=== PATIENT | male | born 1955 | race Caucasian/White ===

== ENCOUNTER 2022-07-08 11:52 | Inpatient (IN) | payer MEDICARE, SELFPAY ==
--- NOTE | ~2022-07-08 | XR_ITS ---
EXAMINATION: XR chest 1V portable DATE: 07/26/2022 10:22 INDICATION: Central line placement. TECHNIQUE: A single frontal view of the chest was obtained. COMPARISON: None. FINDINGS: The chest demonstrates clear lungs without pneumonia, pleural effusion, or pneumothorax. Th e heart size is normal. A right upper extremity peripherally inserted central venous catheter (PICC) is seen with tip in the superior vena cava. IMPRESSION: 1. PICC tip in the superior vena cava. Reviewed, dictated and finalized at location A.
[2022-07-08 13:00] VITALS: BMI 29.5
--- NOTE | 2022-07-08 13:20 | ADMGEN ---
This patient, Declan Maguire, was admitted to 2nd Floor Room 208-1. Patient/family oriented to hospital policies and general routines including ID bracelet, bed and alarms, visiting hours, pain management, procedures, bathroom and other care routines, personal items, smoking policy, room service/diet, and visiting hours. Information on how to activate the Rapid Response Team has been discussed. Patient/Family are encouraged to report perceived risks to care and to ask questions if they do not understand what they are told or what they should do.
[2022-07-08 13:35] VITALS: BP 143/77; PULSE 66; RESP 17; TEMP 37; O2SAT 98
[2022-07-08] MEDS: rOPINIRole HCL 0.25 MG TABLET 0.75 MG PO (16:35)
[2022-07-08] MEDS: APIXABAN 2.5 MG TABLET 5 MG BY MOUTH (20:40)
[2022-07-08] MEDS: BACITRACIN OINTMENT 15 GM TUBE 1 APPLIC TOPICAL (20:40)
[2022-07-09] VITALS: BP 114/51; PULSE 68; RESP 18; TEMP 36.8; O2SAT 96
[2022-07-09 07:52] VITALS: BP 122/73; PULSE 71; RESP 16; TEMP 37.3; O2SAT 97
[2022-07-09] MEDS: FOLIC ACID 1 MG TABLET PO (08:49)
[2022-07-09] MEDS: APIXABAN 2.5 MG TABLET 5 MG BY MOUTH ×2 (08:49→20:23)
[2022-07-09] MEDS: polyethylene glycoL 3350 17 GM POWD.PACK PO (08:49)
[2022-07-09] MEDS: FUROSEMIDE 40 MG TABLET PO (08:49)
[2022-07-09] MEDS: lisinopriL 20 MG TABLET 40 MG PO (08:50)
[2022-07-09] MEDS: ASPIRIN 325 MG ENTERIC TABLET PO (08:50)
[2022-07-09] MEDS: TAMSULOSIN HCL 0.4 MG CAPSULE PO (08:51)
[2022-07-09] MEDS: PANTOPRAZOLE 40 MG TABLET PO (08:51)
[2022-07-09] MEDS: rOPINIRole HCL 0.25 MG TABLET 0.75 MG PO ×3 (08:51→17:47)
[2022-07-09] MEDS: ATORVASTATIN 40 MG TABLET PO (08:51)
[2022-07-09] MEDS: BACITRACIN OINTMENT 15 GM TUBE 1 APPLIC TOPICAL ×2 (08:54→20:40)
--- NOTE | 2022-07-09 11:47 | PM.IMHP ---
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 on 07/02 for total penectomy site dehiscence. Wound cx of the penectomy surgical site now growing PsA and E faecalis. Originally on Vancomycin/Zosyn per Urology. Infectious diesease changed medication to Zosyn IV picc line was placed on 07/07. Patient will continue to recieve IV antibiotic and we will have Physical therapy evaluate patient . Review of Systems Review of Systems: feliciano, Penectomy, All systems reviewed & are unremarkable except as noted in HPI and below PMFSH Past Medical History Medical History (Updated 07/09/22 @ 11:50 by Shira Kaur NP) PETE (acute kidney injury) Dehiscence of wound HTN (hypertension) with goal to be determined Parkinson disease Surgical History Surgical History (Updated 07/09/22 @ 11:50 by Shira Kaur NP) History of penectomy Family History Family History Other Unknown family medical history Social History Social History Smoking packs per day: 1 Smoking cigarettes per day: 20.0 Smoking status: Former smoker Tobacco type: cigarettes Smoking end date: 05/25/22 Alcohol intake: former Substance use: never Substance use type: does not use Lack of Transportation: No Lack of Food: Never True Current Housing: I Have Housing Concerned About Future Housing: No Difficulty Paying Gas/Electric Bills: No Difficulty Paying for Meds: No Currently Unemployed: No Education: Trade/Vocational Certificate Difficulty w/ Childcare or Family Care: No Spiritual care concerns: No Meds Home Medications and Allergies Home Medications Medication Instructions Recorded Confirmed Type acetaminophen 325 mg tablet 650 mg PO Q6-8H PRN Pain 07/08/22 07/08/22 History apixaban 5 mg tablet (Eliquis) 5 mg PO BID 07/08/22 07/08/22 History aspirin 325 mg tablet 325 mg PO DAILY 07/08/22 07/08/22 History atorvastatin 40 mg tablet 40 mg PO DAILY 07/08/22 07/08/22 History bacitracin 500 unit/gram topical See Rx Instructions .Route .COMPLEX 07/08/22 07/08/22 History ointment folic acid 1 mg tablet 1 mg PO DAILY 07/08/22 07/08/22 History furosemide 40 mg tablet 40 mg PO DAILY 07/08/22 07/08/22 History lisinopril 40 mg tablet 40 mg PO DAILY 07/08/22 07/08/22 History melatonin 3 mg tablet 3 mg PO HS PRN Sleep 07/08/22 07/08/22 History omeprazole 20 mg capsule,delayed 20 mg PO DAILY 07/08/22 07/08/22 History release piperacillin-tazobactam 4.5 gram 4.5 g IV Q6H 07/08/22 07/08/22 History intravenous solution polyethylene glycol 3350 17 gram 17 g PO DAILY 07/08/22 07/08/22 History oral powder packet ropinirole 0.25 mg tablet 0.75 mg PO TID 07/08/22 07/08/22 History tamsulosin 0.4 mg capsule 0.4 mg PO DAILY 07/08/22 07/08/22 History Allergies Allergy/AdvReac Type Severity Reaction Status Date / Time No Known Drug Allergies Allergy Unknown Verified 07/08/22 21:58 Vital Signs Vital Signs - 24 hr 07/08/22 13:35 07/09/22 00:00 07/09/22 07:52 Temperature 98.6 F 98.3 F 99.1 F Pulse Rate 66 68 71 Respiratory Rate 17 18 16 Blood Pressure 143/77 H 114/51 L 122/73 Pulse Oximetry 98 96 97 Oxygen Delivery Room Air Room Air Room Air Exam Narrative: GENERAL:Well-appearing, well-nourished, and in no acute distress. HEAD:Normocephalic, atraumatic. EYES: PERRLA and EOMI. ENT: Nares clear, no rhinorrhea or epistaxis. Mucous membranes moist. CHEST: Clear to auscultation lower lobe diminished. No respiratory distress. HEART: Regular rate and rhythm. Normal peripheral pulses
[2022-07-09 16:00] VITALS: BP 95/57; PULSE 71; RESP 16; TEMP 36.9; O2SAT 98
[2022-07-09 20:00] VITALS: PULSE 71; RESP 16; O2SAT 98
[2022-07-10] VITALS: BP 93/54; PULSE 74; RESP 16; TEMP 36.7; O2SAT 97
[2022-07-10 07:55] VITALS: BP 110/57; PULSE 61; RESP 14; TEMP 37; O2SAT 98
[2022-07-10] MEDS: lisinopriL 20 MG TABLET 40 MG PO (08:46)
[2022-07-10] MEDS: APIXABAN 2.5 MG TABLET 5 MG BY MOUTH ×2 (08:46→20:30)
[2022-07-10] MEDS: FUROSEMIDE 40 MG TABLET PO (08:47)
[2022-07-10] MEDS: TAMSULOSIN HCL 0.4 MG CAPSULE PO (08:47)
[2022-07-10] MEDS: FOLIC ACID 1 MG TABLET PO (08:47)
[2022-07-10] MEDS: PANTOPRAZOLE 40 MG TABLET PO (08:48)
[2022-07-10] MEDS: ATORVASTATIN 40 MG TABLET PO (08:48)
[2022-07-10] MEDS: rOPINIRole HCL 0.25 MG TABLET 0.75 MG PO ×3 (08:48→17:52)
[2022-07-10] MEDS: polyethylene glycoL 3350 17 GM POWD.PACK PO (08:49)
[2022-07-10] MEDS: BACITRACIN OINTMENT 15 GM TUBE 1 APPLIC TOPICAL ×2 (08:52→20:30)
[2022-07-10] MEDS: ASPIRIN 325 MG ENTERIC TABLET PO (08:52)
[2022-07-10 15:51] VITALS: BP 102/54; PULSE 71; RESP 14; TEMP 37; O2SAT 98
[2022-07-10 20:00] VITALS: PULSE 71; RESP 14; O2SAT 98
[2022-07-10] MEDS: ACETAMINOPHEN 325 MG TABLET 650 MG PO (20:47)
[2022-07-10] MEDS: MELATONIN 3 MG TABLET PO (20:48)
[2022-07-11] VITALS: BP 107/52; PULSE 68; RESP 16; TEMP 36.4; O2SAT 97
[2022-07-11] MEDS: HEPARIN SODIUM LOCK FLUSH 500 UNITS/5 ML SYRINGE IV PUSH ×2 (01:00→08:36)
[2022-07-11 08:00] VITALS: BP 123/70; PULSE 71; RESP 14; TEMP 36.6; O2SAT 99
[2022-07-11] MEDS: ACETAMINOPHEN 325 MG TABLET 650 MG PO ×2 (08:33→20:39)
[2022-07-11] MEDS: APIXABAN 2.5 MG TABLET 5 MG BY MOUTH ×2 (08:34→20:39)
[2022-07-11] MEDS: rOPINIRole HCL 0.25 MG TABLET 0.75 MG PO ×3 (08:34→17:07)
[2022-07-11] MEDS: ASPIRIN 325 MG ENTERIC TABLET PO (08:34)
[2022-07-11] MEDS: FOLIC ACID 1 MG TABLET PO (08:35)
[2022-07-11] MEDS: PANTOPRAZOLE 40 MG TABLET PO (08:35)
[2022-07-11] MEDS: lisinopriL 20 MG TABLET 40 MG PO (08:35)
[2022-07-11] MEDS: FUROSEMIDE 40 MG TABLET PO (08:35)
[2022-07-11] MEDS: ATORVASTATIN 40 MG TABLET PO (08:36)
[2022-07-11] MEDS: TAMSULOSIN HCL 0.4 MG CAPSULE PO (08:36)
[2022-07-11] MEDS: BACITRACIN OINTMENT 15 GM TUBE 1 APPLIC TOPICAL ×2 (08:36→22:08)
[2022-07-11] MEDS: SACCHAROMYCES BOULARDII 250 MG CAPSULE PO ×2 (09:40→17:07)
[2022-07-11 16:00] VITALS: BP 113/65; PULSE 71; RESP 16; TEMP 37; O2SAT 98
[2022-07-12] VITALS: BP 108/53; PULSE 56; RESP 16; TEMP 36.7; O2SAT 97
[2022-07-12 08:00] VITALS: BP 105/63; PULSE 70; RESP 14; TEMP 36.8; O2SAT 99
[2022-07-12] MEDS: ASPIRIN 325 MG ENTERIC TABLET PO (09:10)
[2022-07-12] MEDS: lisinopriL 20 MG TABLET 40 MG PO (09:45)
[2022-07-12] MEDS: polyethylene glycoL 3350 17 GM POWD.PACK PO (09:46)
[2022-07-12] MEDS: rOPINIRole HCL 0.25 MG TABLET 0.5 MG (09:47)
[2022-07-12] MEDS: ATORVASTATIN 40 MG TABLET PO (09:47)
[2022-07-12] MEDS: SACCHAROMYCES BOULARDII 250 MG CAPSULE PO ×2 (09:49→18:10)
[2022-07-12] MEDS: TAMSULOSIN HCL 0.4 MG CAPSULE PO (09:50)
[2022-07-12] MEDS: PANTOPRAZOLE 40 MG TABLET PO (09:50)
[2022-07-12] MEDS: APIXABAN 2.5 MG TABLET 5 MG BY MOUTH ×2 (09:50→20:59)
[2022-07-12] MEDS: HEPARIN SODIUM LOCK FLUSH 500 UNITS/5 ML SYRINGE IV PUSH (09:51)
[2022-07-12] MEDS: FOLIC ACID 1 MG TABLET PO (09:51)
[2022-07-12] MEDS: FUROSEMIDE 40 MG TABLET PO (09:51)
[2022-07-12] MEDS: BACITRACIN OINTMENT 15 GM TUBE 1 APPLIC TOPICAL ×2 (10:30→20:59)
[2022-07-12 16:30] VITALS: BP 102/54; PULSE 79; RESP 18; TEMP 36.8; O2SAT 98
[2022-07-12] MEDS: rOPINIRole HCL 0.25 MG TABLET 0.75 MG PO (18:10)
[2022-07-13] VITALS: BP 105/50; PULSE 76; RESP 16; TEMP 36.7; O2SAT 97
[2022-07-13 08:00] VITALS: BP 117/60; PULSE 63; TEMP 36.7; O2SAT 99
[2022-07-13] MEDS: APIXABAN 2.5 MG TABLET 5 MG BY MOUTH ×2 (08:40→20:40)
[2022-07-13] MEDS: lisinopriL 20 MG TABLET 40 MG PO (08:43)
[2022-07-13] MEDS: ASPIRIN 325 MG ENTERIC TABLET PO (08:43)
[2022-07-13] MEDS: FOLIC ACID 1 MG TABLET PO (08:43)
[2022-07-13] MEDS: rOPINIRole HCL 0.25 MG TABLET 0.75 MG PO ×3 (08:44→16:45)
[2022-07-13] MEDS: ATORVASTATIN 40 MG TABLET PO (08:45)
[2022-07-13] MEDS: FUROSEMIDE 40 MG TABLET PO (08:45)
[2022-07-13] MEDS: SACCHAROMYCES BOULARDII 250 MG CAPSULE PO ×2 (08:45→16:44)
[2022-07-13] MEDS: TAMSULOSIN HCL 0.4 MG CAPSULE PO (08:45)
[2022-07-13] MEDS: PANTOPRAZOLE 40 MG TABLET PO (08:45)
[2022-07-13] MEDS: HEPARIN SODIUM LOCK FLUSH 500 UNITS/5 ML SYRINGE IV PUSH ×2 (08:47→18:36)
[2022-07-13] MEDS: LOPERAMIDE HCL 2 MG CAPSULE PO (09:40)
[2022-07-13] MEDS: BACITRACIN OINTMENT 15 GM TUBE 1 APPLIC TOPICAL ×2 (09:41→20:40)
--- NOTE | 2022-07-13 15:26 | PC.NURSE ---
Notified Charge nurse Reba that the pt is passing red urine. Pt denies any pain .
[2022-07-13 16:00] VITALS: BP 113/59; PULSE 73; RESP 18; TEMP 36.8; O2SAT 98
[2022-07-13] MEDS: MELATONIN 3 MG TABLET PO (20:40)
[2022-07-14] VITALS: BP 99/53; PULSE 60; RESP 20; TEMP 37.1; O2SAT 97
[2022-07-14 05:18] LABS: Hematocrit 31.9 % (37.0-46.0); Hemoglobin 9.8 g/dL (12.4-15.3); Mean Corpuscular HGB Conc 30.7 g/dL (32.0-36.0); Mean Corpuscular Hemoglobin 29.5 pg (27.0-31.0); Mean Corpuscular Volume 96.1 fL (78.0-102.0); Mean Platelet Volume 10.2 fl (8.7-11.0); Platelet Count Result 307 K/mm3 (150-420); Red Blood Count 3.32 M/mm3 (4.70-6.10); Red Cell Distribution Width 16.7 % (11.6-14.4); White Blood Count 8.5 K/mm3 (4.8-10.8)
[2022-07-14 05:36] LABS: Alanine Aminotransferase 12 U/L (16-63); Albumin Level 2.8 g/dL (3.4-5.0); Alkaline Phosphatase 58 U/L (46-116); Anion Gap 8 mmol/L (8-16); Aspartate Amino Transferase 11 U/L (15-37); Bilirubin,Total 0.1 mg/dL (0.00-1.00); Blood Urea Nitrogen 40 mg/dL (7-18); Calcium 10.1 mg/dL (8.5-10.1); Carbon Dioxide 27 mmol/L (21-32); Chloride 107 mmol/L (98-108); Estimated CRCL calculation 34 ml/min; Estimated Glomerular Filt Rate 33; Glucose 102 mg/dL (70-99); Magnesium 1.8 mg/dL (1.8-2.4); Osmolality Calculated 303 mOsm/kg (285-295); Potassium 4.3 mmol/L (3.5-5.1); Sodium 142 mmol/L (136-145)
[2022-07-14] MEDS: HEPARIN SODIUM LOCK FLUSH 500 UNITS/5 ML SYRINGE IV PUSH ×4 (06:01→23:46)
--- NOTE | 2022-07-14 06:02 | PC.NURSE ---
Red Port of dual lumen flushed and cap and lid changed after blood draw from PICC.
[2022-07-14 07:34] VITALS: BP 123/58; PULSE 59; RESP 16; TEMP 36.8; O2SAT 97
[2022-07-14] MEDS: TAMSULOSIN HCL 0.4 MG CAPSULE PO (08:22)
[2022-07-14] MEDS: SACCHAROMYCES BOULARDII 250 MG CAPSULE PO ×2 (08:23→17:24)
[2022-07-14] MEDS: FUROSEMIDE 40 MG TABLET PO (08:23)
[2022-07-14] MEDS: APIXABAN 2.5 MG TABLET 5 MG BY MOUTH ×2 (08:23→21:01)
[2022-07-14] MEDS: ATORVASTATIN 40 MG TABLET PO (08:23)
[2022-07-14] MEDS: rOPINIRole HCL 0.25 MG TABLET 0.75 MG PO ×2 (08:24→12:07)
[2022-07-14] MEDS: FOLIC ACID 1 MG TABLET PO (08:24)
[2022-07-14] MEDS: ASPIRIN 325 MG ENTERIC TABLET PO (08:25)
[2022-07-14] MEDS: PANTOPRAZOLE 40 MG TABLET PO (08:26)
[2022-07-14] MEDS: lisinopriL 20 MG TABLET 40 MG PO (08:29)
[2022-07-14] MEDS: BACITRACIN OINTMENT 15 GM TUBE 1 APPLIC TOPICAL ×2 (08:30→21:13)
--- NOTE | 2022-07-14 09:16 | PC.NURSE ---
Wet to dry dressing replaced at surgical site. Ointment applied to perineal catheter site.
[2022-07-14] MEDS: ACETAMINOPHEN 325 MG TABLET 650 MG PO ×2 (12:50→21:02)
--- NOTE | 2022-07-14 13:02 | PC.NURSE ---
Patient out of building with ex- for oncology appointment in [place].
[2022-07-14 16:00] VITALS: BP 119/68; PULSE 69; RESP 16; TEMP 36.5; O2SAT 98
--- NOTE | 2022-07-14 16:10 | PC.NURSE ---
Patient returned to unit.
--- NOTE | 2022-07-14 16:19 | PC.NURSE ---
Patient returned to facility from specialist appointment. New orders received. Lana Miller Hospitalist/ADMINISTRATIVE SERVICES ASSISTANT, notified of medication change.
[2022-07-14] MEDS: rOPINIRole HCL 1 MG TABLET PO (17:24)
[2022-07-14 20:00] VITALS: PULSE 69; RESP 16; O2SAT 98
[2022-07-14] MEDS: MELATONIN 3 MG TABLET PO (21:01)
[2022-07-15] VITALS: BP 90/45; PULSE 69; RESP 17; TEMP 36.7; O2SAT 98
[2022-07-15] MEDS: HEPARIN SODIUM LOCK FLUSH 500 UNITS/5 ML SYRINGE IV PUSH ×3 (05:36→08:46)
[2022-07-15 08:00] VITALS: BP 130/61; PULSE 54; RESP 16; TEMP 36.4; O2SAT 97
[2022-07-15] MEDS: ASPIRIN 325 MG ENTERIC TABLET PO (08:47)
[2022-07-15] MEDS: FUROSEMIDE 40 MG TABLET PO (08:47)
[2022-07-15] MEDS: lisinopriL 20 MG TABLET 40 MG PO (08:47)
[2022-07-15] MEDS: TAMSULOSIN HCL 0.4 MG CAPSULE PO (08:48)
[2022-07-15] MEDS: rOPINIRole HCL 1 MG TABLET PO ×3 (08:48→17:46)
[2022-07-15] MEDS: SACCHAROMYCES BOULARDII 250 MG CAPSULE PO ×2 (08:48→17:46)
[2022-07-15] MEDS: APIXABAN 2.5 MG TABLET 5 MG BY MOUTH ×2 (08:48→21:17)
[2022-07-15] MEDS: PANTOPRAZOLE 40 MG TABLET PO (08:49)
[2022-07-15] MEDS: BACITRACIN OINTMENT 15 GM TUBE 1 APPLIC TOPICAL ×2 (08:49→21:20)
[2022-07-15] MEDS: FOLIC ACID 1 MG TABLET PO (08:49)
[2022-07-15] MEDS: ATORVASTATIN 40 MG TABLET PO (08:49)
--- NOTE | 2022-07-15 10:53 | PC.NURSE ---
Inspector [employer] completed dressing change to perineal area and cleansed catheter site and applied ointment. Patient tolerated well. Surgical wounds healing with no s/s infection noted at this time.
[2022-07-15 16:00] VITALS: BP 92/47; PULSE 70; RESP 16; TEMP 37; O2SAT 96
[2022-07-15] MEDS: ACETAMINOPHEN 325 MG TABLET 650 MG PO (21:18)
[2022-07-15 23:05] VITALS: BP 81/55; PULSE 72; RESP 15; TEMP 36.6; O2SAT 98
[2022-07-16 08:00] VITALS: BP 108/61; PULSE 69; RESP 17; TEMP 36.6; O2SAT 99
--- NOTE | 2022-07-16 09:36 | PM.EVENT ---
Event Note Event Note Event Note: lisinipril dc'ed due to hypotension
[2022-07-16] MEDS: APIXABAN 2.5 MG TABLET 5 MG BY MOUTH ×2 (09:55→20:52)
[2022-07-16] MEDS: rOPINIRole HCL 1 MG TABLET PO ×3 (09:55→17:24)
[2022-07-16] MEDS: PANTOPRAZOLE 40 MG TABLET PO (09:55)
[2022-07-16] MEDS: BACITRACIN OINTMENT 15 GM TUBE 1 APPLIC TOPICAL ×2 (09:56→20:53)
[2022-07-16] MEDS: ASPIRIN 325 MG ENTERIC TABLET PO (09:56)
[2022-07-16] MEDS: FOLIC ACID 1 MG TABLET PO (09:56)
[2022-07-16] MEDS: FUROSEMIDE 40 MG TABLET PO (09:56)
[2022-07-16] MEDS: TAMSULOSIN HCL 0.4 MG CAPSULE PO (09:56)
[2022-07-16] MEDS: SACCHAROMYCES BOULARDII 250 MG CAPSULE PO ×2 (09:58→17:24)
[2022-07-16 16:00] VITALS: BP 111/59; PULSE 72; RESP 17; TEMP 36.3; O2SAT 100
[2022-07-16 23:03] VITALS: BP 90/50; PULSE 70; RESP 16; TEMP 36.8; O2SAT 98
[2022-07-17 08:00] VITALS: BP 108/54; PULSE 84; RESP 17; TEMP 36.3; O2SAT 98
[2022-07-17] MEDS: ATORVASTATIN 40 MG TABLET PO (10:06)
[2022-07-17] MEDS: TAMSULOSIN HCL 0.4 MG CAPSULE PO (10:06)
[2022-07-17] MEDS: FUROSEMIDE 40 MG TABLET PO (10:06)
[2022-07-17] MEDS: PANTOPRAZOLE 40 MG TABLET PO (10:06)
[2022-07-17] MEDS: ASPIRIN 325 MG ENTERIC TABLET PO (10:06)
[2022-07-17] MEDS: FOLIC ACID 1 MG TABLET PO (10:06)
[2022-07-17] MEDS: SACCHAROMYCES BOULARDII 250 MG CAPSULE PO ×2 (10:06→17:22)
[2022-07-17] MEDS: rOPINIRole HCL 1 MG TABLET PO ×3 (10:06→17:22)
[2022-07-17] MEDS: BACITRACIN OINTMENT 15 GM TUBE 1 APPLIC TOPICAL ×2 (10:07→20:52)
[2022-07-17 16:00] VITALS: BP 97/58; PULSE 78; RESP 17; TEMP 36.4; O2SAT 98
[2022-07-17 23:15] VITALS: BP 114/62; PULSE 70; RESP 15; TEMP 36.8; O2SAT 98
[2022-07-18] VITALS: BP 96/60; PULSE 60; RESP 20; TEMP 36.8; O2SAT 97
--- NOTE | 2022-07-18 06:56 | PC.NURSE ---
Pt's ex /friend Doug picked up pt for his urologist appointment. This RN transferred pt in wheelchair to the car at the front door. Pt left w/money, phone, sunglasses and hat on person. Prior to ex picking him up pt's clothes were changed and skin was cleaned w/hygiene wipes.
[2022-07-18 08:00] VITALS: BP 110/64; PULSE 75; RESP 16; TEMP 36.4; O2SAT 98
--- NOTE | 2022-07-18 10:31 | PC.NURSE ---
Patient returned from urology appointment with new order that patient may shower. Patient's urostomy catheter has been removed, and it is recommended that patient wear depends due to probability of dribbling until patient is used to new way of urinating.
[2022-07-18] MEDS: SACCHAROMYCES BOULARDII 250 MG CAPSULE PO ×2 (10:39→17:17)
[2022-07-18] MEDS: ASPIRIN 325 MG ENTERIC TABLET PO (10:39)
[2022-07-18] MEDS: TAMSULOSIN HCL 0.4 MG CAPSULE PO (10:40)
[2022-07-18] MEDS: APIXABAN 2.5 MG TABLET 5 MG BY MOUTH ×2 (10:40→21:30)
[2022-07-18] MEDS: FOLIC ACID 1 MG TABLET PO (10:40)
[2022-07-18] MEDS: rOPINIRole HCL 1 MG TABLET PO ×3 (10:40→17:17)
[2022-07-18] MEDS: ATORVASTATIN 40 MG TABLET PO (10:40)
[2022-07-18] MEDS: PANTOPRAZOLE 40 MG TABLET PO (10:41)
[2022-07-18] MEDS: BACITRACIN OINTMENT 15 GM TUBE 1 APPLIC TOPICAL (10:41)
[2022-07-18] MEDS: FUROSEMIDE 40 MG TABLET PO (10:41)
--- NOTE | 2022-07-18 10:44 | PC.NURSE ---
Patient's dressing changed at urology appointment this am.
--- NOTE | 2022-07-18 11:23 | PC.NURSE ---
X Ray Control Equipment Repairer left patient in chair with call light while he was eating post appointment. When financial writer was walking by room minutes later, financial writer observed patient in bed. X Ray Control Equipment Repairer asked patient how he transferred to bed and patient admitted that he walked himself to bed. X Ray Control Equipment Repairer reminded patient that he is a moderate fall risk, and has not been released by PT to ambulate independently. Patient agreed and stated that he won't do it again. Frequent reminders needed.
--- NOTE | 2022-07-18 12:54 | PC.NURSE ---
Patient able to void on his own post urostomy removal. Urine clear, and light yellow.
[2022-07-18 16:00] VITALS: BP 113/66; PULSE 73; RESP 16; TEMP 36.9; O2SAT 97
--- NOTE | 2022-07-18 18:56 | PC.NURSE ---
Patient voiding well without catheter. Urine clear light yellow. No bladder distention noted at this time.
[2022-07-18 20:00] VITALS: PULSE 73; RESP 16; O2SAT 97
[2022-07-18] MEDS: ACETAMINOPHEN 325 MG TABLET 650 MG PO (21:30)
[2022-07-18] MEDS: MELATONIN 3 MG TABLET PO (21:30)
[2022-07-18] MEDS: HEPARIN SODIUM LOCK FLUSH 500 UNITS/5 ML SYRINGE IV PUSH (21:36)
[2022-07-19] VITALS: BP 124/67; PULSE 68; RESP 16; TEMP 36.7; O2SAT 98
[2022-07-19] MEDS: HEPARIN SODIUM LOCK FLUSH 500 UNITS/5 ML SYRINGE IV PUSH ×2 (05:12→21:18)
[2022-07-19 08:00] VITALS: BP 132/70; PULSE 68; RESP 16; TEMP 36.7; O2SAT 99
[2022-07-19] MEDS: ASPIRIN 325 MG ENTERIC TABLET PO (09:24)
[2022-07-19] MEDS: APIXABAN 2.5 MG TABLET 5 MG BY MOUTH ×2 (09:24→20:55)
[2022-07-19] MEDS: SACCHAROMYCES BOULARDII 250 MG CAPSULE PO ×2 (09:24→16:41)
[2022-07-19] MEDS: FUROSEMIDE 40 MG TABLET PO (09:25)
[2022-07-19] MEDS: ATORVASTATIN 40 MG TABLET PO (09:25)
[2022-07-19] MEDS: PANTOPRAZOLE 40 MG TABLET PO (09:25)
[2022-07-19] MEDS: FOLIC ACID 1 MG TABLET PO (09:25)
[2022-07-19] MEDS: rOPINIRole HCL 1 MG TABLET PO ×3 (09:25→16:41)
[2022-07-19] MEDS: TAMSULOSIN HCL 0.4 MG CAPSULE PO (09:25)
[2022-07-19] MEDS: BACITRACIN OINTMENT 15 GM TUBE 1 APPLIC TOPICAL ×2 (09:32→20:57)
[2022-07-19 16:00] VITALS: BP 126/66; PULSE 76; RESP 16; TEMP 36.9; O2SAT 97
[2022-07-19 20:00] VITALS: PULSE 76; RESP 16; O2SAT 97
[2022-07-20] VITALS: BP 122/65; PULSE 67; RESP 18; TEMP 36.4; O2SAT 98
--- NOTE | 2022-07-20 05:38 | PC.NURSE ---
IV antibiotic infusing as ordered.
[2022-07-20 08:00] VITALS: BP 115/69; PULSE 60; RESP 14; TEMP 36.7; O2SAT 99
[2022-07-20] MEDS: rOPINIRole HCL 1 MG TABLET PO ×3 (09:27→16:58)
[2022-07-20] MEDS: FUROSEMIDE 40 MG TABLET PO (09:27)
[2022-07-20] MEDS: SACCHAROMYCES BOULARDII 250 MG CAPSULE PO ×2 (09:28→16:58)
[2022-07-20] MEDS: TAMSULOSIN HCL 0.4 MG CAPSULE PO (09:28)
[2022-07-20] MEDS: ATORVASTATIN 40 MG TABLET PO (09:28)
[2022-07-20] MEDS: PANTOPRAZOLE 40 MG TABLET PO (09:28)
[2022-07-20] MEDS: ASPIRIN 325 MG ENTERIC TABLET PO (09:28)
[2022-07-20] MEDS: FOLIC ACID 1 MG TABLET PO (09:28)
[2022-07-20] MEDS: APIXABAN 2.5 MG TABLET 5 MG BY MOUTH ×2 (09:28→20:13)
[2022-07-20 15:28] VITALS: BP 124/74; PULSE 82; RESP 18; TEMP 36.9; O2SAT 98
[2022-07-20 20:00] VITALS: PULSE 82; RESP 18; O2SAT 98
[2022-07-20] MEDS: BACITRACIN OINTMENT 15 GM TUBE 1 APPLIC TOPICAL (20:14)
--- NOTE | 2022-07-20 23:20 | PC.NURSE ---
dressing change to surgical site done, wet to dry dressing reinforced with tape. patient tolerated procedure well. no complaints of pain with dressing change. small amoutn of bloody drainage noted on old dressing. no s/s of infection noted at this time.
[2022-07-21] VITALS: BP 121/56; PULSE 66; RESP 16; TEMP 36.7; O2SAT 98
--- NOTE | 2022-07-21 06:10 | PC.NURSE ---
IV antibiotic infusing as ordered.
[2022-07-21 07:38] LABS: Hematocrit 33.9 % (37.0-46.0); Hemoglobin 10.7 g/dL (12.4-15.3); Mean Corpuscular HGB Conc 31.6 g/dL (32.0-36.0); Mean Corpuscular Hemoglobin 29.6 pg (27.0-31.0); Mean Corpuscular Volume 93.6 fL (78.0-102.0); Mean Platelet Volume 10.9 fl (8.7-11.0); Platelet Count Result 221 K/mm3 (150-420); Red Blood Count 3.62 M/mm3 (4.70-6.10); Red Cell Distribution Width 15.9 % (11.6-14.4); White Blood Count 8.3 K/mm3 (4.8-10.8)
[2022-07-21 08:00] VITALS: BP 124/56; PULSE 68; RESP 14; TEMP 36.8; O2SAT 98
[2022-07-21 08:01] LABS: Alanine Aminotransferase 21 U/L (16-63); Alkaline Phosphatase 63 U/L (46-116); Anion Gap 7 mmol/L (8-16); Aspartate Amino Transferase 19 U/L (15-37); Bilirubin,Total 0.2 mg/dL (0.00-1.00); Blood Urea Nitrogen 35 mg/dL (7-18); Calcium 10.1 mg/dL (8.5-10.1); Carbon Dioxide 28 mmol/L (21-32); Chloride 104 mmol/L (98-108); Estimated CRCL calculation 34 ml/min; Estimated Glomerular Filt Rate 38; Glucose 94 mg/dL (70-99); Osmolality Calculated 296 mOsm/kg (285-295); Potassium 4.3 mmol/L (3.5-5.1); Sodium 139 mmol/L (136-145); Total Protein 7.3 g/dL (6.4-8.2)
[2022-07-21] MEDS: APIXABAN 2.5 MG TABLET 5 MG BY MOUTH ×2 (09:27→21:03)
[2022-07-21] MEDS: ATORVASTATIN 40 MG TABLET PO (09:27)
[2022-07-21] MEDS: ASPIRIN 325 MG ENTERIC TABLET PO (09:27)
[2022-07-21] MEDS: FOLIC ACID 1 MG TABLET PO (09:27)
[2022-07-21] MEDS: FUROSEMIDE 40 MG TABLET PO (09:27)
[2022-07-21] MEDS: TAMSULOSIN HCL 0.4 MG CAPSULE PO (09:27)
[2022-07-21] MEDS: PANTOPRAZOLE 40 MG TABLET PO (09:27)
[2022-07-21] MEDS: SACCHAROMYCES BOULARDII 250 MG CAPSULE PO ×2 (09:27→16:30)
[2022-07-21] MEDS: rOPINIRole HCL 1 MG TABLET PO ×2 (09:27→16:30)
[2022-07-21 10:25] LABS: Eosinophil Urine 0 % (0-0); Urine Eos QC 2nd Tech Confirmed
--- NOTE | 2022-07-21 14:31 | PCSTNOTE ---
Attempted to see patient three different times throughout the day today but was unable to secondary to being out of the facility. Nurses do not know when the patient will return.
--- NOTE | 2022-07-21 15:45 | PC.NURSE ---
Patient back from dr. hill. Resting in bed with hob elevated.
[2022-07-21 16:40] VITALS: BP 135/68; PULSE 76; RESP 18; TEMP 37.2; O2SAT 97
[2022-07-21 19:56] VITALS: PULSE 76; RESP 18; O2SAT 97
[2022-07-21] MEDS: BACITRACIN OINTMENT 15 GM TUBE 1 APPLIC TOPICAL (21:03)
[2022-07-21] MEDS: MELATONIN 3 MG TABLET PO (21:03)
[2022-07-21] MEDS: HEPARIN SODIUM LOCK FLUSH 500 UNITS/5 ML SYRINGE IV PUSH (22:17)
[2022-07-22] VITALS: BP 124/71; PULSE 78; RESP 17; TEMP 37.2; O2SAT 98
[2022-07-22] MEDS: HEPARIN SODIUM LOCK FLUSH 500 UNITS/5 ML SYRINGE IV PUSH ×2 (05:05→21:06)
[2022-07-22 07:45] VITALS: BP 134/64; PULSE 57; RESP 18; TEMP 36.3; O2SAT 98
[2022-07-22] MEDS: rOPINIRole HCL 1 MG TABLET PO ×3 (09:07→17:11)
[2022-07-22] MEDS: ASPIRIN 325 MG ENTERIC TABLET PO (09:07)
[2022-07-22] MEDS: FOLIC ACID 1 MG TABLET PO (09:07)
[2022-07-22] MEDS: FUROSEMIDE 40 MG TABLET PO (09:08)
[2022-07-22] MEDS: ATORVASTATIN 40 MG TABLET PO (09:08)
[2022-07-22] MEDS: TAMSULOSIN HCL 0.4 MG CAPSULE PO (09:08)
[2022-07-22] MEDS: BACITRACIN OINTMENT 15 GM TUBE 1 APPLIC TOPICAL ×2 (09:08→21:57)
[2022-07-22] MEDS: APIXABAN 2.5 MG TABLET 5 MG BY MOUTH ×2 (09:08→21:06)
[2022-07-22] MEDS: SACCHAROMYCES BOULARDII 250 MG CAPSULE PO ×2 (09:08→17:11)
[2022-07-22] MEDS: PANTOPRAZOLE 40 MG TABLET PO (09:08)
[2022-07-22 16:35] VITALS: BP 136/67; PULSE 57; RESP 18; TEMP 36.9; O2SAT 99
[2022-07-22] MEDS: MELATONIN 3 MG TABLET PO (21:06)
[2022-07-23] VITALS: BP 125/49; PULSE 54; RESP 20; TEMP 36.3; O2SAT 96
[2022-07-23 08:00] VITALS: BP 128/68; PULSE 71; RESP 14; TEMP 36.8; O2SAT 98
[2022-07-23] MEDS: FOLIC ACID 1 MG TABLET PO (08:19)
[2022-07-23] MEDS: ASPIRIN 325 MG ENTERIC TABLET PO (08:19)
[2022-07-23] MEDS: FUROSEMIDE 40 MG TABLET PO (08:19)
[2022-07-23] MEDS: APIXABAN 2.5 MG TABLET 5 MG BY MOUTH ×2 (08:20→21:08)
[2022-07-23] MEDS: rOPINIRole HCL 1 MG TABLET PO ×3 (08:20→17:43)
[2022-07-23] MEDS: PANTOPRAZOLE 40 MG TABLET PO (08:20)
[2022-07-23] MEDS: ATORVASTATIN 40 MG TABLET PO (08:20)
[2022-07-23] MEDS: SACCHAROMYCES BOULARDII 250 MG CAPSULE PO ×2 (08:20→17:48)
[2022-07-23] MEDS: BACITRACIN OINTMENT 15 GM TUBE 1 APPLIC TOPICAL ×2 (08:21→21:08)
[2022-07-23] MEDS: TAMSULOSIN HCL 0.4 MG CAPSULE PO (08:21)
[2022-07-23 15:52] VITALS: BP 144/69; PULSE 69; RESP 16; TEMP 37.1; O2SAT 98
[2022-07-23 20:00] VITALS: PULSE 69; RESP 16; O2SAT 98
[2022-07-23] MEDS: MELATONIN 3 MG TABLET PO (21:08)
[2022-07-23] MEDS: HEPARIN SODIUM LOCK FLUSH 500 UNITS/5 ML SYRINGE IV PUSH (21:08)
[2022-07-24] VITALS: BP 123/68; PULSE 70; RESP 17; TEMP 36.9; O2SAT 98
[2022-07-24 07:40] VITALS: BP 133/66; PULSE 59; RESP 16; TEMP 36.7; O2SAT 98
[2022-07-24] MEDS: PANTOPRAZOLE 40 MG TABLET PO (08:20)
[2022-07-24] MEDS: ATORVASTATIN 40 MG TABLET PO (08:20)
[2022-07-24] MEDS: FOLIC ACID 1 MG TABLET PO (08:20)
[2022-07-24] MEDS: ASPIRIN 325 MG ENTERIC TABLET PO (08:21)
[2022-07-24] MEDS: APIXABAN 2.5 MG TABLET 5 MG BY MOUTH ×2 (08:21→21:04)
[2022-07-24] MEDS: BACITRACIN OINTMENT 15 GM TUBE 1 APPLIC TOPICAL ×2 (08:21→21:04)
[2022-07-24] MEDS: TAMSULOSIN HCL 0.4 MG CAPSULE PO (08:22)
[2022-07-24] MEDS: SACCHAROMYCES BOULARDII 250 MG CAPSULE PO ×2 (08:22→17:12)
[2022-07-24] MEDS: rOPINIRole HCL 1 MG TABLET PO ×3 (08:22→17:12)
[2022-07-24] MEDS: FUROSEMIDE 40 MG TABLET PO (08:23)
[2022-07-24 16:00] VITALS: BP 143/66; PULSE 71; RESP 16; TEMP 37; O2SAT 98
[2022-07-24 20:00] VITALS: PULSE 71; RESP 16; O2SAT 98
[2022-07-24] MEDS: MELATONIN 3 MG TABLET PO (21:04)
[2022-07-24] MEDS: HEPARIN SODIUM LOCK FLUSH 500 UNITS/5 ML SYRINGE IV PUSH (21:33)
[2022-07-25] VITALS: BP 134/76; PULSE 70; RESP 18; TEMP 37; O2SAT 98
[2022-07-25 07:37] VITALS: BP 131/70; PULSE 61; RESP 16; TEMP 36.6; O2SAT 98
[2022-07-25] MEDS: BACITRACIN OINTMENT 15 GM TUBE 1 APPLIC TOPICAL ×2 (08:34→21:27)
[2022-07-25] MEDS: FOLIC ACID 1 MG TABLET PO (08:35)
[2022-07-25] MEDS: APIXABAN 2.5 MG TABLET 5 MG BY MOUTH ×2 (08:35→21:27)
[2022-07-25] MEDS: ASPIRIN 325 MG ENTERIC TABLET PO (08:35)
[2022-07-25] MEDS: ATORVASTATIN 40 MG TABLET PO (08:36)
[2022-07-25] MEDS: PANTOPRAZOLE 40 MG TABLET PO (08:36)
[2022-07-25] MEDS: FUROSEMIDE 40 MG TABLET PO (08:36)
[2022-07-25] MEDS: SACCHAROMYCES BOULARDII 250 MG CAPSULE PO ×2 (08:37→16:44)
[2022-07-25] MEDS: TAMSULOSIN HCL 0.4 MG CAPSULE PO (08:37)
[2022-07-25] MEDS: rOPINIRole HCL 1 MG TABLET PO ×3 (08:37→16:44)
[2022-07-25 16:00] VITALS: BP 146/71; PULSE 71; RESP 14; TEMP 37.1; O2SAT 99
[2022-07-25 20:00] VITALS: PULSE 71; RESP 14; O2SAT 99
[2022-07-25] MEDS: HEPARIN SODIUM LOCK FLUSH 500 UNITS/5 ML SYRINGE IV PUSH (21:26)
[2022-07-25] MEDS: ACETAMINOPHEN 325 MG TABLET 650 MG PO (21:27)
[2022-07-25] MEDS: MELATONIN 3 MG TABLET PO (21:27)
[2022-07-26] VITALS: BP 140/61; PULSE 68; RESP 17; TEMP 36.7; O2SAT 98
[2022-07-26] MEDS: HEPARIN SODIUM LOCK FLUSH 500 UNITS/5 ML SYRINGE IV PUSH (05:13)
[2022-07-26 08:00] VITALS: BP 135/64; PULSE 74; RESP 17; TEMP 36.6; O2SAT 97
[2022-07-26] MEDS: TAMSULOSIN HCL 0.4 MG CAPSULE PO (09:34)
[2022-07-26] MEDS: FUROSEMIDE 40 MG TABLET PO (09:34)
[2022-07-26] MEDS: SACCHAROMYCES BOULARDII 250 MG CAPSULE PO ×2 (09:34→17:30)
[2022-07-26] MEDS: APIXABAN 2.5 MG TABLET 5 MG BY MOUTH ×2 (09:34→20:35)
[2022-07-26] MEDS: rOPINIRole HCL 1 MG TABLET PO ×3 (09:34→17:30)
[2022-07-26] MEDS: PANTOPRAZOLE 40 MG TABLET PO (09:34)
[2022-07-26] MEDS: ATORVASTATIN 40 MG TABLET PO (09:34)
[2022-07-26] MEDS: ASPIRIN 325 MG ENTERIC TABLET PO (09:34)
[2022-07-26] MEDS: BACITRACIN OINTMENT 15 GM TUBE 1 APPLIC TOPICAL ×2 (09:34→20:35)
[2022-07-26] MEDS: FOLIC ACID 1 MG TABLET PO (09:34)
--- NOTE | 2022-07-26 09:59 | PCDIET ---
PICC looks to be migrated from when this nurse previously assessed. [employer] notified and xray has been ordered.
--- NOTE | 2022-07-26 11:15 | PM.IMPN ---
Progress Note: A&P Assessment and Plan (1) History of penectomy: Code(s): Z90.79 - Acquired absence of other genital organ(s) Status: Acute Assessment and Plan: - Continue dressing changes as ordered. - Continue abx of Zosyn. - ID conference 08/02 as cultures grew out Pseudomonas and Enterococcus (2) Dehiscence of wound: Code(s): T81.30XA - Disruption of wound, unspecified, initial encounter Status: Acute Assessment and Plan: - See #1 (3) Parkinson disease: Code(s): G20 - Parkinson's disease Status: Acute Assessment and Plan: - Fall precautions - Therapy evaluating (4) HTN (hypertension) with goal to be determined: Code(s): I10 - Essential (primary) hypertension Status: Acute Assessment and Plan: - Continue meds of Furosemide. - Continue to monitor BP - Continue to hold Lisinopril. (5) PETE (acute kidney injury): Code(s): N17.9 - Acute kidney failure, unspecified Status: Acute Assessment and Plan: - As of 07/21 improving. - Repeat labs in AM. - Encourage po intake. (6) History of DVT (deep vein thrombosis): Code(s): Z86.718 - Personal history of other venous thrombosis and embolism Status: Acute Assessment and Plan: - Continue Eliquis. Plan Stat CXR showed PICC tip in Vena Cava. OK to continue to use PICC. Time Spent With Patient Time with patient: 15 - 25 minutes Subjective Date/time seen: 07/26/22 11:15 Interval history: This pt. was examined at the bedside in interval assessment since he was admitted for IV abx therapy for his dehiscence of his Penectomy incision. He has controlled pain, his feliciano is out and he is voiding without difficulty and he is currently receiving abx of Zosyn through 08/01/22 for his cultures that grew out Enterococcus and Pseudomonas. There is an ID conference scheduled on 08/02/22. Pt. has no complaints at this time of pain, dyspnea, or any other symptoms. It is noted in my exam that the PICC line was partially pulled out. Stat CXR demonstrates that it is still in the VC. OK to use. Review of Systems Review of Systems: All systems reviewed & are unremarkable except as noted in HPI and below Exam Narrative: Power PICC line noted in right arm Const: General: comfortable and no acute distress Other: Sitting at the bedside at this time in no acute distress. HENMT: Face/Nose/Sinus: Normal nares present Mouth: Yes moist mucous membranes Eyes: General: appearance normal, both eyes and all related structures Neck: Neck: supple and no JVD Lymphatic: lymphadenopathy not noted Resp: Effort & Inspection: normal respiratory effort Auscultation: clear to auscultation bilaterally Cardio: Rate: regular rate Rhythm: regular rhythm GI: Inspection: non-distended GI Palp: Yes Soft to palpation and No Tenderness to palpation present (GI) Auscultation: normal bowel sounds : Other: Surgical site C/D/I without any drainage to the patient's perineal region. Skin: General skin exam: normal color, no rashes or lesions noted and no erythema Lesions: no lesions noted Rashes: no rashes noted Wounds: wounds noted (Surgical wound to perineum) Neuro: General: gait normal Speech: normal speech Motor exam (neuro): 5/5 motor strength present throughout and Normal motor muscle tone present throughout Sensory Exam: normal sensation Extrem: General: normal to inspection, no edema and no pedal edema Other: Freely and equally MAEW. Psych: Mental Status: mental status grossly normal Affect: normal affect Objective Data Vital Signs Vital Signs: Vital Signs - 24 hr 07/25/22 16:00 07/25/22 20:00 07/26/22 00:00 Temperature 98.8 F 98.1 F Pulse Rate 71 71 68 Respiratory Rate 14 14 17 Blood Pressure 146/71 H 140/61 Pulse Oximetry 99 99 98 Oxygen Delivery Room Air Room Air Room Air 07/26/22 08:00 Temperature 98 F Pulse Rate 74 Respiratory Rate 17
[2022-07-26 12:27] LABS: Basophils Absolute Auto 0.11 K/mm3 (0.00-0.10); Basophils Percent Auto 1.2 % (0.0-1.0); Eosinophils Absolute Auto 0.83 K/mm3 (0.02-0.50); Eosinophils Percent Auto 9.4 % (1.0-6.0); Hematocrit 35.6 % (37.0-46.0); Hemoglobin 11.2 g/dL (12.4-15.3); Immature Granulocyte Absolute 0.03 K/mm3 (0.00-0.00); Immature Granulocyte Percent A 0.3 % (0.0-0.0); Lymphocytes Absolute Auto 1.78 K/mm3 (1.10-4.50); Lymphocytes Percent Auto 20.1 % (18.0-42.0); Mean Corpuscular HGB Conc 31.5 g/dL (32.0-36.0); Mean Corpuscular Hemoglobin 29.7 pg (27.0-31.0); Mean Corpuscular Volume 94.4 fL (78.0-102.0); Mean Platelet Volume 10.2 fl (8.7-11.0); Monocytes Absolute Auto 0.96 K/mm3 (0.10-0.90); Monocytes Percent Auto 10.8 % (2.0-11.0); Neutrophils Absolute Auto 5.1 K/mm3 (1.7-7.2); Neutrophils Percent Auto 58.2 % (50.0-70.0); Platelet Count Result 242 K/mm3 (150-420); Red Blood Count 3.77 M/mm3 (4.70-6.10); Red Cell Distribution Width 16.2 % (11.6-14.4); White Blood Count 8.9 K/mm3 (4.8-10.8)
[2022-07-26 12:41] LABS: Alanine Aminotransferase 32 U/L (16-63); Albumin Level 3.1 g/dL (3.4-5.0); Alkaline Phosphatase 73 U/L (46-116); Anion Gap 8 mmol/L (8-16); Aspartate Amino Transferase 28 U/L (15-37); Bilirubin,Total 0.2 mg/dL (0.00-1.00); Blood Urea Nitrogen 29 mg/dL (7-18); Calcium 9.8 mg/dL (8.5-10.1); Carbon Dioxide 28 mmol/L (21-32); Chloride 104 mmol/L (98-108); Estimated CRCL calculation 36 ml/min; Estimated Glomerular Filt Rate 41; Glucose 91 mg/dL (70-99); Osmolality Calculated 295 mOsm/kg (285-295); Sodium 140 mmol/L (136-145); Total Protein 7.4 g/dL (6.4-8.2)
[2022-07-26 16:00] VITALS: BP 120/62; PULSE 74; RESP 17; TEMP 36.9; O2SAT 97
[2022-07-26] MEDS: MELATONIN 3 MG TABLET PO (20:35)
[2022-07-26 23:59] VITALS: BP 119/50; PULSE 58; RESP 18; TEMP 36.6; O2SAT 97
[2022-07-27 05:18] LABS: Basophils Absolute Auto 0.09 K/mm3 (0.00-0.10); Eosinophils Absolute Auto 0.83 K/mm3 (0.02-0.50); Eosinophils Percent Auto 9.2 % (1.0-6.0); Hematocrit 33.6 % (37.0-46.0); Hemoglobin 10.5 g/dL (12.4-15.3); Immature Granulocyte Absolute 0.02 K/mm3 (0.00-0.00); Immature Granulocyte Percent A 0.2 % (0.0-0.0); Lymphocytes Absolute Auto 1.98 K/mm3 (1.10-4.50); Lymphocytes Percent Auto 21.9 % (18.0-42.0); Mean Corpuscular HGB Conc 31.3 g/dL (32.0-36.0); Mean Corpuscular Hemoglobin 29.2 pg (27.0-31.0); Mean Corpuscular Volume 93.6 fL (78.0-102.0); Mean Platelet Volume 10.4 fl (8.7-11.0); Monocytes Absolute Auto 0.96 K/mm3 (0.10-0.90); Monocytes Percent Auto 10.6 % (2.0-11.0); Neutrophils Absolute Auto 5.2 K/mm3 (1.7-7.2); Neutrophils Percent Auto 57.1 % (50.0-70.0); Platelet Count Result 223 K/mm3 (150-420); Red Blood Count 3.59 M/mm3 (4.70-6.10)
[2022-07-27 05:34] LABS: Alanine Aminotransferase 33 U/L (16-63); Albumin Level 2.8 g/dL (3.4-5.0); Alkaline Phosphatase 66 U/L (46-116); Anion Gap 7 mmol/L (8-16); Aspartate Amino Transferase 26 U/L (15-37); Bilirubin,Total 0.2 mg/dL (0.00-1.00); Blood Urea Nitrogen 33 mg/dL (7-18); Calcium 9.9 mg/dL (8.5-10.1); Carbon Dioxide 29 mmol/L (21-32); Chloride 105 mmol/L (98-108); Estimated CRCL calculation 37 ml/min; Estimated Glomerular Filt Rate 43; Glucose 95 mg/dL (70-99); Osmolality Calculated 299 mOsm/kg (285-295); Sodium 141 mmol/L (136-145); Total Protein 6.8 g/dL (6.4-8.2)
[2022-07-27 08:00] VITALS: BP 120/56; PULSE 51; RESP 16; TEMP 36.6; O2SAT 98
[2022-07-27] MEDS: APIXABAN 2.5 MG TABLET 5 MG BY MOUTH ×2 (10:03→21:42)
[2022-07-27] MEDS: SACCHAROMYCES BOULARDII 250 MG CAPSULE PO ×2 (10:04→17:06)
[2022-07-27] MEDS: PANTOPRAZOLE 40 MG TABLET PO (10:04)
[2022-07-27] MEDS: TAMSULOSIN HCL 0.4 MG CAPSULE PO (10:04)
[2022-07-27] MEDS: FOLIC ACID 1 MG TABLET PO (10:04)
[2022-07-27] MEDS: BACITRACIN OINTMENT 15 GM TUBE 1 APPLIC TOPICAL ×2 (10:04→21:41)
[2022-07-27] MEDS: ATORVASTATIN 40 MG TABLET PO (10:04)
[2022-07-27] MEDS: rOPINIRole HCL 1 MG TABLET PO ×3 (10:04→17:06)
[2022-07-27] MEDS: FUROSEMIDE 40 MG TABLET PO (10:04)
[2022-07-27] MEDS: ASPIRIN 325 MG ENTERIC TABLET PO (10:04)
[2022-07-27 16:00] VITALS: BP 120/54; PULSE 58; RESP 17; TEMP 36.8; O2SAT 98
[2022-07-27] MEDS: MELATONIN 3 MG TABLET PO (21:41)
[2022-07-28] VITALS: BP 109/52; PULSE 60; RESP 16; TEMP 36.5; O2SAT 96
[2022-07-28 07:55] VITALS: BP 137/69; PULSE 70; RESP 18; TEMP 36.7; O2SAT 99
[2022-07-28] MEDS: APIXABAN 2.5 MG TABLET 5 MG BY MOUTH ×2 (08:12→21:40)
[2022-07-28] MEDS: rOPINIRole HCL 1 MG TABLET PO ×3 (08:12→17:04)
[2022-07-28] MEDS: BACITRACIN OINTMENT 15 GM TUBE 1 APPLIC TOPICAL ×2 (08:12→21:40)
[2022-07-28] MEDS: ASPIRIN 325 MG ENTERIC TABLET PO (08:12)
[2022-07-28] MEDS: PANTOPRAZOLE 40 MG TABLET PO (08:13)
[2022-07-28] MEDS: FOLIC ACID 1 MG TABLET PO (08:13)
[2022-07-28] MEDS: FUROSEMIDE 40 MG TABLET PO (08:13)
[2022-07-28] MEDS: ATORVASTATIN 40 MG TABLET PO (08:14)
[2022-07-28] MEDS: TAMSULOSIN HCL 0.4 MG CAPSULE PO (08:14)
[2022-07-28] MEDS: SACCHAROMYCES BOULARDII 250 MG CAPSULE PO ×2 (08:16→17:03)
--- NOTE | 2022-07-28 09:34 | PC.NURSE ---
Patient showered with nurse assist, and wet to dry dressing changed, as well as ointment applied to urinary diversion area. Patient tolerated well. Surgical sites have no s/s infection at this time.
[2022-07-28 16:00] VITALS: BP 124/59; PULSE 72; RESP 16; TEMP 36.8; O2SAT 98
[2022-07-28] MEDS: HEPARIN SODIUM LOCK FLUSH 500 UNITS/5 ML SYRINGE IV PUSH ×2 (20:40→22:40)
[2022-07-28] MEDS: ACETAMINOPHEN 325 MG TABLET 650 MG PO (21:39)
[2022-07-28] MEDS: MELATONIN 3 MG TABLET PO (21:40)
[2022-07-28 23:31] VITALS: BP 114/50; PULSE 68; RESP 20; TEMP 36.5; O2SAT 98
[2022-07-29] MEDS: HEPARIN SODIUM LOCK FLUSH 500 UNITS/5 ML SYRINGE IV PUSH (06:33)
[2022-07-29 08:00] VITALS: BP 136/67; PULSE 65; RESP 18; TEMP 36.8; O2SAT 98
[2022-07-29] MEDS: PANTOPRAZOLE 40 MG TABLET PO (08:26)
[2022-07-29] MEDS: FOLIC ACID 1 MG TABLET PO (08:27)
[2022-07-29] MEDS: ATORVASTATIN 40 MG TABLET PO (08:27)
[2022-07-29] MEDS: APIXABAN 2.5 MG TABLET 5 MG BY MOUTH ×2 (08:27→20:41)
[2022-07-29] MEDS: ASPIRIN 325 MG ENTERIC TABLET PO (08:27)
[2022-07-29] MEDS: rOPINIRole HCL 1 MG TABLET PO ×3 (08:27→16:55)
[2022-07-29] MEDS: FUROSEMIDE 40 MG TABLET PO (08:28)
[2022-07-29] MEDS: TAMSULOSIN HCL 0.4 MG CAPSULE PO (08:28)
[2022-07-29] MEDS: SACCHAROMYCES BOULARDII 250 MG CAPSULE PO ×2 (08:31→16:55)
[2022-07-29] MEDS: BACITRACIN OINTMENT 15 GM TUBE 1 APPLIC TOPICAL ×2 (09:50→20:42)
[2022-07-29 15:44] VITALS: BP 127/64; PULSE 68; RESP 18; TEMP 36.9; O2SAT 98
--- NOTE | 2022-07-29 15:56 | PC.NURSE ---
Pt sitting in chair watching TV, he reports no pain and no needs at this time. Pt reports feeling well today, call hernandez at pt side.
[2022-07-29 23:15] VITALS: BP 116/58; PULSE 60; RESP 16; TEMP 36.8; O2SAT 98
[2022-07-30 08:00] VITALS: BP 130/62; PULSE 80; RESP 17; TEMP 36.3; O2SAT 97
[2022-07-30] MEDS: rOPINIRole HCL 1 MG TABLET PO ×3 (09:49→17:49)
[2022-07-30] MEDS: PANTOPRAZOLE 40 MG TABLET PO (09:49)
[2022-07-30] MEDS: FUROSEMIDE 40 MG TABLET PO (09:49)
[2022-07-30] MEDS: APIXABAN 2.5 MG TABLET 5 MG BY MOUTH ×2 (09:49→21:31)
[2022-07-30] MEDS: FOLIC ACID 1 MG TABLET PO (09:49)
[2022-07-30] MEDS: ATORVASTATIN 40 MG TABLET PO (09:49)
[2022-07-30] MEDS: BACITRACIN OINTMENT 15 GM TUBE 1 APPLIC TOPICAL ×2 (09:49→21:31)
[2022-07-30] MEDS: ASPIRIN 325 MG ENTERIC TABLET PO (09:49)
[2022-07-30] MEDS: SACCHAROMYCES BOULARDII 250 MG CAPSULE PO ×2 (09:49→17:49)
[2022-07-30] MEDS: TAMSULOSIN HCL 0.4 MG CAPSULE PO (09:49)
[2022-07-30 16:00] VITALS: BP 111/59; PULSE 63; RESP 18; TEMP 36.8; O2SAT 97
[2022-07-30 23:34] VITALS: BP 111/54; PULSE 69; RESP 16; TEMP 36.6; O2SAT 97
[2022-07-31 08:00] VITALS: BP 118/58; PULSE 61; RESP 17; TEMP 36.6; O2SAT 96
[2022-07-31] MEDS: FOLIC ACID 1 MG TABLET PO (09:53)
[2022-07-31] MEDS: PANTOPRAZOLE 40 MG TABLET PO (09:53)
[2022-07-31] MEDS: APIXABAN 2.5 MG TABLET 5 MG BY MOUTH ×2 (09:53→21:17)
[2022-07-31] MEDS: TAMSULOSIN HCL 0.4 MG CAPSULE PO (09:53)
[2022-07-31] MEDS: ASPIRIN 325 MG ENTERIC TABLET PO (09:53)
[2022-07-31] MEDS: SACCHAROMYCES BOULARDII 250 MG CAPSULE PO ×2 (09:53→17:42)
[2022-07-31] MEDS: rOPINIRole HCL 1 MG TABLET PO ×3 (09:53→17:41)
[2022-07-31] MEDS: FUROSEMIDE 40 MG TABLET PO (09:53)
[2022-07-31] MEDS: BACITRACIN OINTMENT 15 GM TUBE 1 APPLIC TOPICAL ×2 (09:53→21:17)
[2022-07-31] MEDS: ATORVASTATIN 40 MG TABLET PO (09:53)
--- NOTE | 2022-07-31 11:30 | PC.NURSE ---
Dressing change completed and teaching done with patient and friend, Tarik, who will be changing dressing at home.
[2022-07-31 16:00] VITALS: BP 107/66; PULSE 72; RESP 16; TEMP 37; O2SAT 97
[2022-07-31 23:33] VITALS: BP 104/48; PULSE 74; RESP 13; TEMP 36.6; O2SAT 97
--- NOTE | 2022-08-01 06:58 | WPDPN ---
Progress Note: A&P Assessment and Plan (1) History of penectomy: Code(s): Z90.79 - Acquired absence of other genital organ(s) Status: Acute Assessment and Plan: - Continue dressing changes as ordered. - Continue abx of Zosyn. - ID conference 08/02 as cultures grew out Pseudomonas and Enterococcus (2) HTN (hypertension) with goal to be determined: Code(s): I10 - Essential (primary) hypertension Status: Acute Assessment and Plan: - Continue meds of Furosemide. - Continue to monitor BP - Continue to hold Lisinopril. (3) PETE (acute kidney injury): Code(s): N17.9 - Acute kidney failure, unspecified Status: Acute Assessment and Plan: - As of 07/21 improving. - Encourage po intake. (4) Dehiscence of wound: Code(s): T81.30XA - Disruption of wound, unspecified, initial encounter Status: Acute (5) Parkinson disease: Code(s): G20 - Parkinson's disease Status: Acute Assessment and Plan: - Fall precautions - Therapy evaluating Subjective Date/time seen: 08/01/22 06:58 Interval history: patient has no complaints he is having a regular bowel movement ,? Getting adequate sleep , pain control, ? and tolerating his meals and physical therapy is going well. The patient denies SOB, CP, palpitation, extremity numbness, lightheadedness, dizziness, constipation, diarrhea, chills, or fever. Review of Systems Review of Systems: All systems reviewed & are unremarkable except as noted in HPI and below Exam Narrative: Power PICC line noted in right arm Const: General: comfortable and no acute distress Other: Sitting at the bedside at this time in no acute distress. HENMT: Face/Nose/Sinus: Normal nares present Mouth: Yes moist mucous membranes Eyes: General: appearance normal, both eyes and all related structures Neck: Neck: supple and no JVD Lymphatic: lymphadenopathy not noted Resp: Effort & Inspection: normal respiratory effort Auscultation: clear to auscultation bilaterally Cardio: Rate: regular rate Rhythm: regular rhythm GI: Inspection: non-distended Auscultation: normal bowel sounds : Other: Surgical site C/D/I without any drainage to the patient's perineal region. Skin: General skin exam: normal color, no rashes or lesions noted, no erythema, No lesion, No rashes and wounds noted (Surgical wound to perineum) Lesions: no lesions noted Rashes: no rashes noted Wounds: wounds noted (Surgical wound to perineum) Neuro: General: gait normal Speech: normal speech Motor exam (neuro): 5/5 motor strength present throughout and Normal motor muscle tone present throughout Sensory Exam: normal sensation Extrem: General: normal to inspection, no edema and no pedal edema Other: Freely and equally MAEW. Psych: Mental Status: mental status grossly normal Affect: normal affect Objective Data Vital Signs Vital Signs: Vital Signs - 24 hr 07/31/22 08:00 07/31/22 16:00 07/31/22 23:33 Temperature 36.6 C 37.0 C 36.6 C Pulse Rate 61 72 74 Respiratory Rate 17 16 13 Blood Pressure 118/58 L 107/66 104/48 L Pulse Oximetry 96 97 97 Oxygen Delivery Room Air Room Air Room Air Intake/Output Intake/Output: Intake & Output 07/29/22 07/30/22 07/31/22 08/01/22 23:59 23:59 23:59 23:59 Intake Total 2030 2730 2080 230 Output Total 3350 1800 1400 Balance -1320 930 680 230 Meds/Results Medications: Active Medications Generic Name Dose Route Start Last Admin Trade Name Rubenq PRN Reason Stop Dose Admin Acetaminophen 650 mg 07/08/22 13:31 07/28/22 21:39 Acetaminophen 325 Mg Tablet PO 650 mg Q6-8H PRN Administration Pain Apixaban 5 mg 07/08/22 21:00 07/31/22 21:17 Apixaban 2.5 Mg Tablet BY MOUTH 5 mg Q12HR SINAN Administration Aspirin 325 mg 07/09/22 09:00 07/31/22 09:53 Aspirin 325 Mg Enteric Tablet PO 325 mg QAM SINAN Administration Atorvastatin Calcium 40 mg 07/09
[2022-08-01 08:00] VITALS: BP 126/69; PULSE 58; RESP 14; TEMP 36.8; O2SAT 100
[2022-08-01] MEDS: APIXABAN 2.5 MG TABLET 5 MG BY MOUTH ×2 (08:32→20:59)
[2022-08-01] MEDS: TAMSULOSIN HCL 0.4 MG CAPSULE PO (08:32)
[2022-08-01] MEDS: BACITRACIN OINTMENT 15 GM TUBE 1 APPLIC TOPICAL ×2 (08:32→21:00)
[2022-08-01] MEDS: PANTOPRAZOLE 40 MG TABLET PO (08:32)
[2022-08-01] MEDS: ATORVASTATIN 40 MG TABLET PO (08:33)
[2022-08-01] MEDS: SACCHAROMYCES BOULARDII 250 MG CAPSULE PO ×2 (08:33→17:24)
[2022-08-01] MEDS: FOLIC ACID 1 MG TABLET PO (08:33)
[2022-08-01] MEDS: ASPIRIN 325 MG ENTERIC TABLET PO (08:33)
[2022-08-01] MEDS: rOPINIRole HCL 1 MG TABLET PO ×3 (08:33→17:24)
[2022-08-01] MEDS: FUROSEMIDE 40 MG TABLET PO (08:33)
[2022-08-01 16:00] VITALS: BP 128/64; PULSE 68; RESP 14; TEMP 37; O2SAT 97
[2022-08-01 20:00] VITALS: PULSE 68; RESP 14; O2SAT 97
[2022-08-01] MEDS: ACETAMINOPHEN 325 MG TABLET 650 MG PO (21:00)
[2022-08-01] MEDS: MELATONIN 3 MG TABLET PO (21:00)
[2022-08-01] MEDS: HEPARIN SODIUM LOCK FLUSH 500 UNITS/5 ML SYRINGE IV PUSH ×2 (21:02→21:03)
[2022-08-02] VITALS: BP 143/66; PULSE 70; RESP 16; TEMP 37.1; O2SAT 98
[2022-08-02] MEDS: HEPARIN SODIUM LOCK FLUSH 500 UNITS/5 ML SYRINGE IV PUSH ×2 (05:49→05:50)
[2022-08-02 08:00] VITALS: BP 128/50; PULSE 82; RESP 18; TEMP 36.8; O2SAT 98
[2022-08-02] MEDS: TAMSULOSIN HCL 0.4 MG CAPSULE PO (09:05)
[2022-08-02] MEDS: ASPIRIN 325 MG ENTERIC TABLET PO (09:05)
[2022-08-02] MEDS: PANTOPRAZOLE 40 MG TABLET PO (09:05)
[2022-08-02] MEDS: FOLIC ACID 1 MG TABLET PO (09:05)
[2022-08-02] MEDS: rOPINIRole HCL 1 MG TABLET PO ×3 (09:05→17:04)
[2022-08-02] MEDS: ATORVASTATIN 40 MG TABLET PO (09:05)
[2022-08-02] MEDS: FUROSEMIDE 40 MG TABLET PO (09:05)
[2022-08-02] MEDS: SACCHAROMYCES BOULARDII 250 MG CAPSULE PO ×2 (09:05→17:04)
[2022-08-02] MEDS: APIXABAN 2.5 MG TABLET 5 MG BY MOUTH ×2 (09:05→20:41)
[2022-08-02] MEDS: BACITRACIN OINTMENT 15 GM TUBE 1 APPLIC TOPICAL (09:06)
[2022-08-02 16:00] VITALS: BP 127/65; PULSE 62; RESP 16; TEMP 36.8; O2SAT 98
--- NOTE | 2022-08-03 06:00 | PC.NURSE ---
Due to extensive down time see nurses notes and hardcopy paperwork in pt chart.
[2022-08-03 08:00] VITALS: BP 142/74; PULSE 72; RESP 18; TEMP 36.6; O2SAT 97
[2022-08-03] MEDS: BACITRACIN OINTMENT 15 GM TUBE 1 APPLIC TOPICAL (09:06)
[2022-08-03] MEDS: rOPINIRole HCL 1 MG TABLET PO ×2 (09:06→12:59)
[2022-08-03] MEDS: ASPIRIN 325 MG ENTERIC TABLET PO (09:06)
[2022-08-03] MEDS: TAMSULOSIN HCL 0.4 MG CAPSULE PO (09:06)
[2022-08-03] MEDS: SACCHAROMYCES BOULARDII 250 MG CAPSULE PO (09:06)
[2022-08-03] MEDS: FUROSEMIDE 40 MG TABLET PO (09:06)
[2022-08-03] MEDS: FOLIC ACID 1 MG TABLET PO (09:06)
[2022-08-03] MEDS: APIXABAN 2.5 MG TABLET 5 MG BY MOUTH (09:07)
[2022-08-03] MEDS: ATORVASTATIN 40 MG TABLET PO (09:07)
[2022-08-03] MEDS: PANTOPRAZOLE 40 MG TABLET PO (09:07)
--- NOTE | 2022-08-03 09:57 | PM.DS ---
DS: Admitting Diagnosis Discharge Date 08/03/2022 Admitting Diagnosis IV antibiotic s/p ? total penectomy and perineal urethrostomy on , Physical therapy, DS: Discharge Diagnosis Discharge Diagnosis (1) History of penectomy: Code(s): Z90.79 - Acquired absence of other genital organ(s) Status: Acute Assessment and Plan: - Continue dressing changes as ordered. - Continue abx of Zosyn. - ID conference 08/02 as cultures grew out Pseudomonas and Enterococcus (2) Dehiscence of wound: Code(s): T81.30XA - Disruption of wound, unspecified, initial encounter Status: Acute Assessment and Plan: - See #1 (3) Parkinson disease: Code(s): G20 - Parkinson's disease Status: Acute Assessment and Plan: - Fall precautions - Therapy evaluating (4) HTN (hypertension) with goal to be determined: Code(s): I10 - Essential (primary) hypertension Status: Acute Assessment and Plan: - Continue meds of Furosemide. - Continue to monitor BP - Continue to hold Lisinopril. (5) PETE (acute kidney injury): Code(s): N17.9 - Acute kidney failure, unspecified Status: Acute Assessment and Plan: - As of 07/21 improving. - PCP to follow pt labs - Encourage po intake. (6) History of DVT (deep vein thrombosis): Code(s): Z86.718 - Personal history of other venous thrombosis and embolism Status: Acute Assessment and Plan: - Continue Eliquis. Plan Stat CXR showed PICC tip in Vena Cava. OK to continue to use PICC. 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 Patient has continued to work with physical therapy and currently still requires dressing changes twice a day but is stable that he can go home and have home health assistance as well as family. Patient has remained alert and oriented eating and drinking without any difficulties able to ambulate with walker and has remained afebrile no nausea vomiting and/or diarrhea. Patient's vitals have remained stable the last 1 completed was 142/74, pulse 72, respirations 18, temp 98?, O2 sat 97% last set of labs CXR was done on 07/27 in fact the patient's infectious disease doctor who he has seen since then PICC line has been pulled. Patient has been educated on medications dressing changes family has been educated on how to complete the dressing changes and he will discharge home at this time. Time Spent with Patient Time attestation: Total time spent providing and/or coordinating discharge services: Exam Const: General: comfortable and no acute distress Other: Sitting at the bedside at this time in no acute distress. HENMT: Face/Nose/Sinus: Normal nares present Mouth: Yes moist mucous membranes Eyes: General: appearance normal, both eyes and all related structures Resp: Effort & Inspection: normal respiratory effort Auscultation: clear to auscultation bilaterally Cardio: Rate: regular rate Rhythm: regular rhythm GI: Inspection: non-distended Auscultation: normal bowel sounds : Other: Surgical site C/D/I without any drainage to the patient's perineal region. Skin: General skin exam: normal color, no rashes or lesions noted, no erythema, No lesion, No rashes and wounds noted (Surgical wound to perineum) Lesions: no lesions noted Rashes: no rashes noted Wounds: wounds noted (Surgical wound to perineum) Neuro: General: gait normal Speech: normal speech Motor exam (neuro): 5/5 motor strength present throughout and Normal motor muscle tone present throughout Sensory Exam: normal sensation Extrem: General: normal to inspection, no edema and no pedal edema Other: Freely and equa
--- NOTE | 2022-08-03 16:22 | PC.NURSE ---
1545 patient dc to friend's personal car for dc. paperwork went over with patient and friend. also step by step how to change drg went over with friend. he vocalizes an understanding. claims he is fast learner and looked easy the day a si sada that the nurse showed him. was to watch this nurse to change it prior to dc but called and told patient that he didn't want to see it repeated again. both patient and friend vocalize an understanding of orders. aware that home health will be there on monday and call them to set up time.
--- NOTE | 2022-08-04 13:11 | PC.NURSE ---
Pt states he received and understood his discharge instructions. Pt has no other comments.
== END 2022-08-03 15:45 | disposition home health service (06) | DRG 950 ==
PROVIDERS: Nurse Practitioner; Nurse Practitioner Adult Health; Admitting Provider Internal Medicine; PCP Physician Assistant; Visit Provider Nurse Practitioner Family
DX: T81.49XD Infection following a procedure, other surgical site, subsequent encounter (principal); T81.31XD Disruption of external operation (surgical) wound, not elsewhere classified, subsequent encounter; B96.5 Pseudomonas (aeruginosa) (mallei) (pseudomallei) as the cause of diseases classified elsewhere; B95.2 Enterococcus as the cause of diseases classified elsewhere; G20 Parkinson's disease; I10 Essential (primary) hypertension; E78.5 Hyperlipidemia, unspecified; Z86.718 Personal history of other venous thrombosis and embolism; Z79.01 Long term (current) use of anticoagulants; Z90.79 Acquired absence of other genital organ(s); Z87.891 Personal history of nicotine dependence
CPT/HCPCS: 36415; 71045; 80053; 83735; 85025; 85027; 85999; 87324; 92507; 92523; 97110; 97116; 97161; 97165; 97530; 97535; A9270; J2543